=== PATIENT | female | born 1990 | race Caucasian/White ===

== ENCOUNTER → 2016-08-27 | Outpatient (CLI) | payer OTHER ==
[2016-08-27 10:53] LABS: BLOOD UREA NITROGEN 15 mg/dL (7-22); BUN/CREATININE RATIO 16.66 (6-20); CALCIUM 9.3 mg/dL (8.7-10.7); EST GLOMERULAR FILTRATION > 60 (>60 ml/min/1.73m(2)); SERUM ALBUMIN 4.3 g/dL (3.5-4.8)
[2016-08-27 11:03] LABS: BASOPHILS # (AUTO) 0.06 10*3/UL; BASOPHILS % (AUTO) 0.8 % (0-1); EOSINOPHILS # (AUTO) 0.22 10*3/UL; EOSINOPHILS % (AUTO) 3.1 % (0-8); HEMATOCRIT 42.4 % (37.0-47.0); HEMOGLOBIN 13.7 g/dL (12.0-16.0); MEAN CORPUSCULAR HEMOGLOBIN 25.9 PG (27-31); MEAN CORPUSCULAR HGB CONC 32.3 g/dL (33-37); MEAN CORPUSCULAR VOLUME 80.3 FL (81-99); MEAN PLATELET VOLUME 10.2 FL (7.4-12.2); MONOCYTES # (AUTO) 0.57 10*3/UL (0.3-0.8); NEUTROPHILS # (AUTO) 3.49 10*3/UL; NEUTROPHILS % (AUTO) 48.8 % (50-80); RED BLOOD COUNT 5.28 10^6/uL (4.20-5.40)
[2016-08-27 11:13] LABS: PLATELET MORPHOLOGY COMMENT NORMAL MORPHOLOGY (NORM); RBC MORPHOLOGY COMMENT NORMAL MORPHOLOGY (NORM); WBC MORPHOLOGY COMMENT NORMAL MORPHOLOGY (NORM)
== END ==
LOC: MOB LAB 09:38
PROVIDERS: ATTEND Physician Assistant Medical
DX: H93.8X3 Other specified disorders of ear, bilateral (principal); R53.83 Other fatigue; D50.9 Iron deficiency anemia, unspecified; M79.661 Pain in right lower leg
CPT/HCPCS: 36415; 80053; 83540; 83550; 84443; 84466; 85025

== ENCOUNTER 2016-10-16 20:22 | Emergency (ER) | payer OTHER ==
[2016-10-16] MEDS ORDERED: AMOXICILLIN 500 MG CAPSULE PO SCH (20:45)
[2016-10-16 21:47] VITALS: RESP 18; TEMP 97.6
--- NOTE | 2016-10-16 22:05 | PDOC ---
Ear Complaints HPI - General Chief Complaint: Ear Problem / Injury Stated Complaint: LEFT EAR PAIN, HEADACHE, FEVER X 24 HOURS Date Seen by Provider: 10/16/16 Time Seen by Provider: 20:25 Source: POSITIVE: Patient Exam Limitations: POSITIVE: No limitations Nurse's Notes Reviewed & Considered: Yes - History of Present Illness Initial Comments: The patient is a 26-year-old female who presents to the emergency department with complaints of left ear pain and fever. She reports that she has chronic sinus drainage and congestion secondary to a deviated septum and allergies. She states over the past 24 hour she's developed increased ear pain on the left as well as fever today. She also states she thinks she hears some fluid in her left ear as well. She denies any increased sore throat or cough or any other associated complaints. - Patient Home Medications Home Medications: Home Medications Levonorgestrel [Mirena] 1 each IY unit 08/27/16 Amoxicillin 500 mg PO TID #28 cap 10/16/16 - Patient Allergies Allergies/Adverse Reactions: Allergies Allergy/AdvReac Type Severity Reaction Status Date / Time No Known Drug Allergies Allergy NOT Unverified 08/27/16 08:58 APPLICABLE Past Medical History - heen HEENT History: Other (please comment) Additional HEENT History: DEVIATED SEPTUM Cardiovascular History: Other (please comment) Additional Cardiovasular History: HEART MURMUR Respiratory History: Denies History Gastrointestinal History: Denies History Genitourinary History: Denies History Endocrine History: Denies History Musculoskeletal History: Denies History Prosthesis or Implant: Yes (IUD) Neurological History: Denies History Blood Disorders: Denies History Psychiatric History: Denies History History of Sexually Transmitted Diseases: No Female Reproductive History: Denies History Obstetrical History: Denies History Cancer History: Denies History In Past Year Been Physically Harmed or Verbally Threatened: No History of MDRO: No History of Other Communicable Diseases: Yes (HPV) Tobacco Use: Current Every Day Smoker Alcohol Use: Rarely Substance Use Type: None Previous Surgical History: Yes Type / Date of Surgery: JAN 2009 / WISDOM TEETH/INGUNIAL HERINA, TUBAL LIGATION Anesthesia Reactions: Yes (PONV) Malignant Hyperthermia: No Significant Family History: Cancer, Diabetes Past Medical History Reviewed: Reviewed - No Changes ROS - Limitations ROS Limitations: No Limitations Constitution: REPORTS: Fever Cardiovascular: REPORTS: Denies Cardiac Symptoms Respiratory: REPORTS: Denies Resp Symptoms Neurological: REPORTS: Denies Neuro Symptoms Gastrointestinal: REPORTS: Denies GI Symptoms ENT: REPORTS: Earache (Left-sided), Congestion, Sinus Problem (Deviated septum and chronic sinus congestion), Other (Denies drainage from the left ear). DENIES: Sore Throat Ear Complaint Exam - General Appearance General Appearance: POSITIVE: Alert, Cooperative, No Acute Distress - HEENT Head / Face: POSITIVE: Normal Inspection, No Facial Swelling Eyes: POSITIVE: Inspection Normal Ears: POSITIVE: Ears Normal Inspection, Other (Left TM is slightly erythematous and dull with what appears to be a cloudy middle ear effusion, right TM is clear ) Nose: POSITIVE: Inspection Normal Oropharynx: POSITIVE: Pharynx Inspect. Nml, Airway Intact, Voice Normal, Moist Mucous Membranes - Respiratory Respiratory: POSITIVE: No Respiratory Distress, Breath Sounds Normal - Cardiovascular Cardiovascular: POSITIVE: Regular Rate and Rhythm, Heart Sounds Normal Ear Complaints Progress - Patient's Progress MDM / ED Course: The patient was started on amoxicillin 500 mg 3 times a day for 10 days for treatment of left otitis media. She will continue ibuprofen 600 mg every 6 hours as needed for pain or fever. Return to the emergency room if any worsening or change in symptoms. Follow-up with primary care if no improvement in 3-5 days. - Consult Counseled: POSITIVE: Patient, Family, RE: DX, RE: Need for F/U Patient Care Time - Estimated PCT Patient Care Time (In Minutes): 10 Vital Signs - Recent Vital Signs Vital Signs: Vital Signs (Last 8 hours) Temp Pulse Resp BP Pulse Ox 10/16/16 20:22 97.6 F 64 18 112/67 96 - VS Reviewed Vital Signs Reviewed: Yes Discharge Clinical Impression: Otitis media Discharge Disposition: Discharged to Home Condition: Stable Prescriptions / Orders: Amoxicillin 500 mg PO TID #28 cap Patient Instructions Given at Discharge: Otitis Media (ED) Additional Instructions: There appears to be an early ear infection in the left ear. Start amoxicillin 500 mg 3 times a day for 10 days. Continue ibuprofen 600 mg every 6 hours as needed for pain/fever. Return to the emergency room if increased pain, worsening or change in symptoms. Recommend follow-up with primary care if no improvement in 3-5 days. Follow Up With: VERÓNICA BELLAMY [Primary Care Provider] -
== END 2016-10-16 20:49 | disposition home or self-care (01) ==
LOC: ER 20:22
DX: H66.92 Otitis media, unspecified, left ear (principal); R50.9 Fever, unspecified; H92.02 Otalgia, left ear
CPT/HCPCS: 99282

== ENCOUNTER → 2016-10-25 | Outpatient (CLI) | payer OTHER | LOC: MOB EKG 10:48 | PROVIDERS: ATTEND Physician Assistant Medical | DX: N89.8 Other specified noninflammatory disorders of vagina (principal) | CPT/HCPCS: 87480; 87510; 87660 ==